=== PATIENT | male | born 1965 | race African-American/Black ===

== ENCOUNTER 2023-12-17 17:58 | Emergency (ER) | payer MEDICARE, MEDICAID ==
[~2023-12-17] VITALS: Ht 182.9 cm; Wt 97.5 kg
[2023-12-17 18:16] VITALS: BP 115/90; RESP 16; TEMP 98.6; O2SAT 98
[2023-12-17 18:26] VITALS: PULSE 90
[2023-12-17] MEDS ORDERED: LIDOCAINE HCL 1% 20ML VIAL (Pyxis) INJ INFIL ONE (22:45)
[2023-12-17] MEDS ORDERED: SULF1TAB48 MT (23:15)
== END 2023-12-18 01:02 | disposition home or self-care (01) ==
LOC: ER 17:58
DX: L02.511 Cutaneous abscess of right hand (principal)
CPT/HCPCS: 99283; 10060; 73130; J3490